=== PATIENT | female | born 1990 | race Two or more races ===

== ENCOUNTER 2021-06-08 15:45 | Emergency (ER) | payer OTHER, MEDICAID ==
[~2021-06-08] VITALS: Ht 162.6 cm; Wt 56.7 kg
[2021-06-08 17:33] VITALS: BP 120/67
== END 2021-06-08 17:40 | disposition home or self-care (01) ==
LOC: ER 15:45
DX: U07.1 COVID-19 (principal)
CPT/HCPCS: 71045